=== PATIENT | male | born 1940 | race Caucasian/White ===

== ENCOUNTER 2017-07-06 08:04 | Emergency (ER) | payer MEDICARE ==
[~2017-07-06] VITALS: Ht 182.9 cm; Wt 98.0 kg
[~2017-07-06 08:04] MED LIST: AMIT25TA20 PO; ASPI81TA82 PO; ATOR20TA PO; GLIP5 PO; HYDR12.56 PO; LORT5TAB PO; NITR0.4S SL
[2017-07-06 08:08] VITALS: BP 144/67; PULSE 69; RESP 16; TEMP 97.5; O2SAT 94
[2017-07-06] MEDS ORDERED: SODIUM CHLORIDE 0.9% FLUSH 10 ML FLUSH IVF PRN (08:30)
[2017-07-06] MEDS ORDERED: TRAM50TA PO (08:34)
[2017-07-06] MEDS ORDERED: GLIP10TA6 PO (08:34)
[2017-07-06] MEDS ORDERED: METF500T PO (08:34)
[2017-07-06] MEDS ORDERED: HYDR25TA5 PO (08:34)
[2017-07-06] MEDS ORDERED: ATOR40TA16 PO (08:34)
[2017-07-06] MEDS ORDERED: LUPR11.22 IM (08:34)
[2017-07-06] MEDS ORDERED: ASPI81CH6 CHEW (08:34)
[2017-07-06 08:39] VITALS: BP 103/59; PULSE 71; RESP 18; O2SAT 95
[2017-07-06 08:48] LABS: AUTOMATED NEUTROPHIL # 6.1 TH/MM3 (1.8-7.7); BASOPHIL # 0.1 TH/MM3 (0-0.2); BASOPHIL % 0.6 % (0.0-2.0); EOSINOPHIL # 0.2 TH/MM3 (0-0.4); EOSINOPHIL % 2.7 % (0.0-4.0); HEMATOCRIT 43.8 % (39.0-51.0); HEMOGLOBIN 13.9 GM/DL (13.0-17.0); LYMPH % 16.9 % (9.0-44.0); LYMPHOCYTE # 1.4 TH/MM3 (1.0-4.8); MEAN CELL VOLUME 88.8 FL (80.0-100.0); MEAN CORPUSCULAR HEMOGLOBIN 28.2 PG (27.0-34.0); MEAN CORPUSCULAR HGB CONC 31.8 % (32.0-36.0); MEAN PLATELET VOLUME 7.8 FL (7.0-11.0); MONO % 6.9 % (0.0-8.0); MONOCYTE # 0.6 TH/MM3 (0-0.9); NEUT % 72.9 % (16.0-70.0); PLATELET COUNT 309 TH/MM3 (150-450); RED BLOOD COUNT 4.93 MIL/MM3 (4.50-5.90); RED CELL DISTRIBUTION WIDTH 13.3 % (11.6-17.2); WHITE BLOOD COUNT 8.4 TH/MM3 (4.0-11.0)
--- NOTE | 2017-07-06 08:52 | PD ---
HPI Chief Complaint: GI Complaint Time Seen by Provider: 08:19 Travel History International Travel<30 days: No Contact w/Intl Traveler<30days: No Traveled to known affect area: No History of Present Illness HPI 76-year-old male states a couple months ago he had bright red bleeding per rectum but it went away and he did not see a physician for it. He states again over the past couple of days he's had bright red bleeding per rectum. He states he's also had a couple episodes of nonbloody emesis. He denies any abdominal pain, fever or other concurrent complaints. He denies taking any over -the-counter anti-inflammatories but states that he has been on tramadol for her new pain medication. Quality is bright red. He states he's wearing a depends because he is having bleeding even when he is not going to the bathroom. He feels worse when he moves around. He denies other modifying factors. Quality is bright red. Severity is multiple episodes. PFSH Past Medical History Hx Anticoagulant Therapy: Yes (ASA 81MG DAILY) Arthritis: Yes Blood Disorders: No Cancer: No Cardiovascular Problems: No High Cholesterol: Yes Chemotherapy: No Cerebrovascular Accident: Yes (TIA 2002) Diabetes: Yes Patient Takes Glucophage: Yes Endocrine: Yes Genitourinary: Yes Hypertension: Yes Immune Disorder: No Musculoskeletal: Yes Neurologic: No Psychiatric: No Reproductive: No Respiratory: No Migraines: No Radiation Therapy: No Seizures: No Sickle Cell Disease: No Past Surgical History Abdominal Aneurysm Repair: Yes Abdominal Surgery: Yes (HERNIA REPAIR) Cardiac Surgery: No Ear Surgery: No Endocrine Surgery: No Eye Surgery: No Genitourinary Surgery: Yes (PROSTATE REMOVAL) Gynecologic Surgery: No Oral Surgery: No Thoracic Surgery: No Other Surgery: Yes (PROSTATE CA REMOVED/L HERNIA REPAIR) Social History Alcohol Use: No Tobacco Use: No Substance Use: No Allergies-Medications (Allergen,Severity, Reaction): Coded Allergies: No Known Allergies (Verified , 07/20/15) Reported Meds & Prescriptions Reported Meds & Active Scripts Active Reported Hydrochlorothiazide 25 Mg Tab 25 Mg PO BID Atorvastatin (Atorvastatin Calcium) 40 Mg Tab 40 Mg PO HS Tramadol (Tramadol HCl) 50 Mg Tab 50 Mg PO Q4H PRN Glipizide 10 Mg Tab 10 Mg PO BIDAC Take 30 minutes before a meal Lupron Depot Inj Kit (Leuprolide (3 Month) Inj Kit) 11.25 Mg Kit 11.25 Mg IM Q90D Aspirin Low Dose (Aspirin) 81 Mg Chew 81 Mg CHEW DAILY Metformin (Metformin HCl) 500 Mg Tab 500 Mg PO BIDPC Review of Systems Except as stated in HPI: all other systems reviewed are Neg Physical Exam Narrative GENERAL: Well-nourished, well-developed patient. SKIN: Warm and dry. HEAD: Normocephalic and atraumatic. EYES: No injection or drainage. ENT: No nasal drainage noted. NECK: Supple, trachea midline. CARDIOVASCULAR: Regular rate and rhythm RESPIRATORY: Breath sounds equal bilaterally. No accessory muscle use. GASTROINTESTINAL: Abdomen soft, non-tender, nondistended. RECTAL EXAM: Performed with membership advisor and after permission. No large external hemorrhoid or fissure, stool is bloody NEUROLOGICAL: Awake. Motor and sensory grossly within normal limits. Normal speech. Data Data Last Documented VS Vital Signs Date Time Temp Pulse Resp B/P (MAP) Pulse Ox O2 Delivery O2 Flow Rate FiO2 07/06/17 08:39 71 18 103/59 (74) 95 Room Air 07/06/17 08:08 97.5 Orders Orders Complete Blood Count With Diff (07/06/17 08:19) Comprehensive Metabolic Panel (07/06/17 08:19) Prothrombin Time / Inr (Pt) (07/06/17 08:19) Act Partial Throm Time (Ptt) (07/06/17 08:19) Type And Screen (07/06/17 08:19) Ecg Monitoring (07/06/17 08:19) Iv Access Insert/Monitor (07/06/17 08:19) Oximetry (07/06/17 08:19) Sodium Chloride 0.9% Flush (Ns Flush) (07/06/17 08:30) Ondansetron Inj (Zofran Inj) (07/06/17 09:00) Sodium Chlorid 0.9% 500 Ml Inj (Ns 500 M (07/06/17 09:00) Pantoprazole Inj (Protonix Inj) (07/06/17 09:00) Ed Discharge Order (07/06/17 11:13) Labs Laboratory Tests Test 07/06/17 08:38 White Blood Count 8.4 TH/MM3 Red Blood Count 4.93 MIL/MM3 Hemoglobin 13.9 GM/DL Hematocrit 43.8 % Mean Corpuscular Volume 88.8 FL Mean Corpuscular Hemoglobin 28.2 PG Mean Corpuscular Hemoglobin Concent 31.8 % Red Cell Distribution Width 13.3 % Platelet Count 309 TH/MM3 Mean Platelet Volume 7.8 FL Neutrophils (%) (Auto) 72.9 % Lymphocytes (%) (Auto) 16.9 % Monocytes (%) (Auto) 6.9 % Eosinophils (%) (Auto) 2.7 % Basophils (%) (Auto) 0.6 % Neutrophils # (Auto) 6.1 TH/MM3 Lymphocytes # (Auto) 1.4 TH/MM3 Monocytes # (Auto) 0.6 TH/MM3 Eosinophils # (Auto) 0.2 TH/MM3 Basophils # (Auto) 0.1 TH/MM3 CBC Comment DIFF FINAL Differential Comment Prothrombin Time 10.2 SEC Prothromb Time International Ratio 1.0 RATIO Activated Partial Thromboplast Time 26.7 SEC Blood Urea Nitrogen 19 MG/DL Creatinine 1.50 MG/DL Random Glucose 176 MG/DL Total Protein 7.2 GM/DL Albumin 3.5 GM/DL Calcium Level 9.0 MG/DL Alkaline Phosphatase 160 U/L Aspartate Amino Transf (AST/SGOT) 16 U/L Alanine Aminotransferase (ALT/SGPT) 14 U/L Total Bilirubin 0.8 MG/DL Sodium Level 137 MEQ/L Potassium Level 3.9 MEQ/L Chloride Level 100 MEQ/L Carbon Dioxide Level 29.8 MEQ/L Anion Gap 7 MEQ/L Estimat Glomerular Filtration Rate 46 ML/MIN MDM Medical Decision Making Medical Screen Exam Complete: Yes Emergency Medical Condition: Yes Medical Record Reviewed: Yes (past history confirmed) Interpretation(s) CBC & BMP Diagram 07/06/17 08:38 Total Protein 7.2, Albumin 3.5, Calcium Level 9.0, Alkaline Phosphatase 160 H, Aspartate Amino Transf (AST/SGOT) 16, Alanine Aminotransferase (ALT/SGPT) 14, Total Bilirubin 0.8 Differential Diagnosis Diverticulosis, gastroenteritis, hemorrhoid, anemia, radiation colitis Narrative Course Will check blood work and reevaluate. Dose with IV fluids and Zofran and Protonix Reviewed labs, will discuss with GI Patient's is now here and lengthy discussion with patient and he does not want to stay in the hospital for any more testing. We'll discuss with his primary care physician CASIE: The risks of leaving against medical advice without further evaluation treatment were discussed with the patient. These risks include cardiac dysfunction, cardiac dysrhythmia, possible heart attack, possible stroke or . The patient indicated understanding of these risks and appeared to have the capacity to make this decision. [facility] Point of Care Internal Pos. & Neg. Controls: Passed Fecal Specimen Occult Blood: Positive Physician Communication Physician Communication dr zamarripa states to order bleeding scan and ct abdomen and observe in the hospital dr gagnon states since patient wants to leave ama will see in office next week Diagnosis Primary Impression: Rectal bleeding Additional Impressions: Vomiting Qualified Codes: R11.10 - Vomiting, unspecified Renal insufficiency Patient Instructions: General Instructions Additional Instructions: call dr gagnon for close follow up Disposition: 07 AGAINST MEDICAL ADVICE Condition: Stable Zhane Avila MD Jul 06, 2017 08:52
[2017-07-06 08:55] LABS: CHLORIDE 100 MEQ/L (98-107); SODIUM (NA) 137 MEQ/L (136-145)
[2017-07-06 08:59] LABS: ALBUMIN 3.5 GM/DL (3.4-5.0); BICARBONATE 29.8 MEQ/L (21.0-32.0); BLOOD UREA NITROGEN 19 MG/DL (7-18); GLUCOSE,RANDOM 176 MG/DL (74-106); PROTHROMBIN TIME - PATIENT 10.2 SEC (9.8-11.6)
[2017-07-06] MEDS ORDERED: PANTOPRAZOLE SODIUM 40 MG VIAL IV PUSH ONE (09:00)
[2017-07-06] MEDS ORDERED: ONDANSETRON HCL 4 MG/2 ML VIAL IV PUSH ONE (09:00)
[2017-07-06] MEDS ORDERED: SODIUM CHLORID 0.9% 500 ML INJ 500 ML IV ONE (09:00)
[2017-07-06 09:02] LABS: ALT (GPT) 14 U/L (12-78); AST (GOT) 16 U/L (15-37); GLOMERULAR FILTRATION RATE 46 ML/MIN (>89)
[2017-07-06 09:03] LABS: TOTAL BILIRUBIN ADULT 0.8 MG/DL (0.2-1.0); TOTAL PROTEIN 7.2 GM/DL (6.4-8.2)
[2017-07-06 09:05] LABS: ALKALINE PHOSPHATASE 160 U/L (45-117)
== END 2017-07-06 11:41 | disposition left against medical advice (07) ==
LOC: PHED 08:04
DX: K62.5 Hemorrhage of anus and rectum (principal); Z53.21 Procedure and treatment not carried out due to patient leaving prior to being seen by health care provider; R11.10 Vomiting, unspecified; N28.9 Disorder of kidney and ureter, unspecified; E11.9 Type 2 diabetes mellitus without complications; I10 Essential (primary) hypertension; Z79.82 Long term (current) use of aspirin
CPT/HCPCS: 80053; 85025; 85610; 85730; 86850; 86900; 86901; 96361; 96374; 96375; 99284; C9113; J2405; J7040

== ENCOUNTER 2018-04-30 02:05 | Inpatient (IN) ==
--- NOTE | 2018-04-30 02:25 | ED ---
HPI General Chief Complaint: Shortness of Breath/Dyspnea Stated Complaint: SOB Time Seen by Provider: 04/30/18 02:28 Source: patient Mode of arrival: ambulatory Limitations: no limitations History of Present Illness 77-year-old male presents to the emergency room marked respiratory distress with severe dyspnea on exertion demonstrating tachypnea and work of breathing and low O2 saturations on room air. Patient denies fever chills or productive cough. Patient had no hemoptysis or yellow-green sputum production. Patient has history of high blood pressure and reportedly was prescribed HCTZ which she has been out of for 5 days with progressive worsening and swelling of the lower extremities. No recent long distance travel protracted bedrest or surgical procedure. Patient denies history of congestive heart failure. Patient was just seen by his primary care and started on a refill of his HCTZ but has not yet taken it. Patient denies any chest pain. No abdominal pain. Symptoms acutely worse this evening. Marked shortness of breath with minimal exertion. MD Complaint: Reports shortness of breath Onset (ago): day(s) Context: Reports occurred during exertion; Denies recent illness, choking/ aspiration, medication noncompliance, allergen exposure, recent travel, smoke/ fume exposure, anxiety, trauma/injury, elevated blood glucose and CO exposure Severity: severe Consistency/Duration: constant and progressively worsening Relieving factors: nothing Exacerbating factors: exertion, movement and talking Known history of: Reports diabetes; Denies COPD, asthma, congestive heart failure, recurrent pneumonia, aspiration pneumonia, HIV, PE, DVT and IVDU Associated symptoms: Reports orthopnea and lower extremity pain; Denies chest pain, pain with inspiration, fever, cough, wheezing, sputum production, polyuria , polydipsia, paresthesias, palpitations, carpopedal spasm, hemoptysis, diaphoresis, nausea/vomiting, syncope, abdominal pain, rash, sense of impending doom, chest congestion, dizziness and lightheadedness Treatment prior to arrival: Reports none Related Data Home oxygen amount: none Home Medications Medication Instructions Recorded Confirmed atorvastatin 20 mg PO DAILY 04/30/18 04/30/18 glipizide 10 mg PO DAILY 04/30/18 04/30/18 hydrochlorothiazide 25 mg PO DAILY 04/30/18 04/30/18 losartan 100 mg PO DAILY 04/30/18 04/30/18 metformin 500 mg PO DAILY 04/30/18 04/30/18 Allergies Allergy/AdvReac Type Severity Reaction Status Date / Time No Known Allergies Allergy Verified 04/30/18 03:15 Review of Systems ROS: all other systems reviewed are negative PMFSH History History Provided By: Medical Record (Hypertension 5 cm abdominal aortic aneurysm status post endovascular graft repair 2016 diabetes hypertension dyslipidemia CAD nonsustained ventricular tachycardia nuc stress 2016 fixed apical defect with hyokinesis ef by echo 55-60 ) Medical History Medical History Diabetes mellitus (Acute) HTN (hypertension) (Acute) Hypercholesteremia (Acute) Surgical History Surgical History History of carotid endarterectomy (Acute) Hx of aortic aneurysm repair (Acute) Hx of prostatectomy (Acute) Social History Social History Substance History: No History of Abuse Second Hand Smoke Exposure: No Smoking Status: Former smoker How Often Do You Have a Drink Containing Alcohol: Never Recent Travel in [facility] within the Last 8 Weeks: No Recent Out of Country Travel within the Last 8 Weeks: No Exam Narrative Exam Narrative: GENERAL: Well-nourished, well-developed patient. In acute respiratory distress, RA O2 sat 71% SKIN: Focused skin assessment warm/dry. HEAD: Normocephalic. EYES: No scleral icterus. No injection or drainage. NECK: Supple, trachea midline. No JVD or lymphadenopathy. CARDIOVASCULAR: Regular rate and rhythm without murmurs, gallops, or rubs. RESPIRATORY: Breath sounds equal bilaterally bibasilar rales with accessory muscle use. GASTROINTESTINAL: Abdomen soft, non-tender, nondistended. MUSCULOSKELETAL: No cyanosis, bilateral hand and pedal edema. BACK: Nontender without obvious deformity. No CVA tenderness. Course Initial Documented Vital Signs Temperature 98.0 F 04/30/18 02:18 Pulse Rate 100 H 04/30/18 02:18 Respiratory Rate 18 04/30/18 02:18 Blood Pressure 192/90 H 04/30/18 02:18 Pulse Oximetry 95 04/30/18 02:18 Last Documented Vital Signs Temperature 98.0 F 04/30/18 02:18 Pulse Rate 100 H 04/30/18 02:18 Respiratory Rate 18 04/30/18 02:18 Blood Pressure 192/90 H 04/30/18 02:18 Pulse Oximetry 96 04/30/18 02:30 Critical Care Time Critical Care Time: Yes Total Critical Care Time: 35 Attestation: Aggregate critical care time was 35 minutes. Time to perform other separately billable procedures was not included in the critical care time. My time did not include minutes spent treating any other patients simultaneously or on activities that did not directly contribute to the patient's treatment. The services I provided to this patient were to treat and/or prevent clinically significant deterioration that could result in: Respiratory arrest, I provided critical care services requiring my management, as noted below: Chart data review, documentation time, medication orders and management, vital sign assessments/reviewing monitor data, ordering and reviewing lab tests, ordering and interpreting/reviewing x-rays and diagnostic studies, care of the patient and discussion of the patient with the admitting physicians. Medical Decision Making MDM Narrative Medical decision making narrative: 77-year-old male presents to the emergency department with marked shortness of breath upon evaluating oxygen on pulse oximetry 71% sat with good waveform patient immediately placed in room started on supplemental oxygen with nonrebreather 15 L/min environmental monitoring specialist and IV access obtained. EKG performed shows sinus tachycardia with Q waves inferiorly no acute ST elevation or injury pattern artifact present at baseline and PAC. Patient placed on BiPAP ABG ordered with pH of 7.39 and PO2 of 40 PO2 96 on 15 L bicarbonate in normal range at 23.6 sats 96%. Patient administer one-time dose of Lasix iv; labs cxr ordered. Chest x-ray shows cephalization patchy infiltrate consistent with failure/edema Total white cell count is 15,500 with mild left shift due to patient's presentation of sinus tachycardia and white count elevation patient does meet SIRS criteria and this point no obvious source of infection patient had no fever no chills no productive cough no yellow-green sputum production. Urine specimen will be collected. Chemistries resulted consistent with renal insufficiency which appears chronic Patient able to be transitioned to nasal cannula oxygen at rest tolerates supplemental oxygen well remains symptomatic with exertion patient will require hospitalization is at risk for respiratory deterioration may require BiPAP support has experienced orthopnea and dyspnea on exertion and PND. BNP mildly elevated at 305; troponin I 0.07, elevated call placed to pcp service dr Bull -- Tiffani WHITTEN will admit to their service ; placed in step down unit. Medical Screen Exam Complete: Yes Emergency Medical Condition: Yes Differential Diagnosis Differential Diagnosis: Dyspnea, CHF, COPD, PE, pneumonia, SIRS, sepsis, anemia , ACS, AL, renal failure Medical Records Medical records reviewed: Yes I reviewed the patient's medical records. Lab Data Result diagrams: 04/30/18 02:25 04/30/18 02:25 Lab Results 04/30/18 04/30/18 04/30/18 Range/Units 02:15 02:25 02:25 CBC w Diff Auto diff final WBC 15.5 H (4.0-11.0) th/mm3 RBC 4.88 (4.50-5.90) mil/mm3 Hgb 14.7 (13.0-17.0) gm/dL Hct 45.3 (39.0-51.0) % MCV 92.8 (80.0-100.0) fL MCH 30.0 (27.0-34.0) pg MCHC 32.4 (32.0-36.0) % RDW 13.9 (11.6-17.2) % Plt Count 303 (150-450) th/mm3 MPV 8.2 (7.0-11.0) fL Neut % (Auto) 79.5 H (16.0-70.0) % Lymph % (Auto) 11.6 (9.0-44.0) % [place] % (Auto) 4.9 (0.0-8.0) % Eos % (Auto) 1.4 (0.0-4.0) % Baso % (Auto) 2.6 H (0.0-2.0) % Neut # (Auto) 12.3 H (1.8-7.7) th/mm3 Lymph # (Auto) 1.8 (1.0-4.8) th/mm3 [place] # (Auto) 0.8 (0.0-0.9) th/mm3 Eos # (Auto) 0.2 (0.0-0.4) th/mm3 Baso # (Auto) 0.4 H (0.0-0.2) th/mm3 WBC Differential . Differential Comment . PT 9.6 L (9.8-11.6) sec INR 0.9 Ratio APTT 25.8 (23.4-31.7) sec Puncture Site Right brachial Patient Temperature 98.6 O2 Saturation 96 (90-100) % ABG pH 7.39 (7.380-7.420) ABG pCO2 40 (38-42) mmHg ABG pO2 97 (61-120) mmHg ABG HCO3 24 (22-26) mmol/L ABG O2 Content 19.2 (12.0-20.0) Vol % ABG Base Excess -0.8 (-2-2) mmol/L ABG Methemoglobin 1.0 (0-2) % Hemoglobin 14.3 (12.0-16.0) G/DL Carboxyhemoglobin 1.8 (0-4) % O2 Delivery Device Nonrebreather Liter Flow 15.00 L/M Critical Value No Sodium (136-145) meq/L Potassium (3.5-5.1) meq/L Chloride (98-107) meq/L Carbon Dioxide (21.0-32.0) meq/L Anion Gap (5-15) meq/L BUN (7-18) mg/dL Creatinine (0.60-1.30) mg/dL Estimated GFR (>89) mL/min Random Glucose (74-106) mg/dL Calcium (8.5-10.1) mg/dL Magnesium (1.5-2.5) mg/dL Total Bilirubin (0.2-1.0) mg/dL AST (15-37) U/L ALT (12-78) U/L Alkaline Phosphatase (45-117) U/L Troponin I (0.02-0.05) ng/mL B-Natriuretic Peptide (0-100) pg/mL Total Protein (6.4-8.2) g/dL Albumin (3.4-5.0) g/dL Urine Color (Yellw/Straw) Urine Clarity (Clear) Urine pH (5.0-8.5) Ur Specific [place] (1.002-1.035) Urine Protein (Neg-Trace) mg/dL Urine Glucose (UA) (Negative) mg/dL Urine Ketones (Negative) mg/dL Urine Occult Blood (Negative) Urine Nitrate (Negative) Urine Bilirubin (Negative) Urine Urobilinogen (Less than 2) mg/dL Ur Leukocyte Esterase (Negative) Urine RBC (0-3) /hpf Urine WBC (0-5) /hpf Ur Squamous Epith Cells (0-5) /hpf Micro UA Comment Ur Microscopic Review Urine Culture Comments 04/30/18 04/30/18 04/30/18 Range/Units 02:25 02:25 02:55 CBC w Diff WBC (4.0-11.0) th/mm3 RBC (4.50-5.90) mil/mm3 Hgb (13.0-17.0) gm/dL Hct (39.0-51.0) % MCV (80.0-100.0) fL MCH (27.0-34.0) pg MCHC (32.0-36.0) % RDW (11.6-17.2) % Plt Count (150-450) th/mm3 MPV (7.0-11.0) fL Neut % (Auto) (16.0-70.0) % Lymph % (Auto) (9.0-44.0) % [place] % (Auto) (0.0-8.0) % Eos % (Auto) (0.0-4.0) % Baso % (Auto) (0.0-2.0) % Neut # (Auto) (1.8-7.7) th/mm3 Lymph # (Auto) (1.0-4.8) th/mm3 [place] # (Auto) (0.0-0.9) th/mm3 Eos # (Auto) (0.0-0.4) th/mm3 Baso # (Auto) (0.0-0.2) th/mm3 WBC Differential Differential Comment PT (9.8-11.6) sec INR Ratio APTT (23.4-31.7) sec Puncture Site Patient Temperature O2 Saturation (90-100) % ABG pH (7.380-7.420) ABG pCO2 (38-42) mmHg ABG pO2 (61-120) mmHg ABG HCO3 (22-26) mmol/L ABG O2 Content (12.0-20.0) Vol % ABG Base Excess (-2-2) mmol/L ABG Methemoglobin (0-2) % Hemoglobin (12.0-16.0) G/DL Carboxyhemoglobin (0-4) % O2 Delivery Device Liter Flow L/M Critical Value Sodium 140 (136-145) meq/L Potassium 4.6 (3.5-5.1) meq/L Chloride 107 (98-107) meq/L Carbon Dioxide 21.8 (21.0-32.0) meq/L Anion Gap 11 (5-15) meq/L BUN 26 H (7-18) mg/dL Creatinine 1.40 H (0.60-1.30) mg/dL Estimated GFR 49 L (>89) mL/min Random Glucose 129 H (74-106) mg/dL Calcium 9.1 (8.5-10.1) mg/dL Magnesium 2.4 (1.5-2.5) mg/dL Total Bilirubin 1.0 (0.2-1.0) mg/dL AST 34 (15-37) U/L ALT 36 (12-78) U/L Alkaline Phosphatase 223 H (45-117) U/L Troponin I 0.07 H (0.02-0.05) ng/mL B-Natriuretic Peptide 305 H (0-100) pg/mL Total Protein 7.8 (6.4-8.2) g/dL Albumin 3.9 (3.4-5.0) g/dL Urine Color Yellow (Yellw/Straw) Urine Clarity Clear (Clear) Urine pH 5.5 (5.0-8.5) Ur Specific [place] 1.025 (1.002-1.035) Urine Protein 100 H (Neg-Trace) mg/dL Urine Glucose (UA) Negative (Negative) mg/dL Urine Ketones Negative (Negative) mg/dL Urine Occult Blood Trace (Negative) Urine Nitrate Negative (Negative) Urine Bilirubin Negative (Negative) Urine Urobilinogen 0.2 (Less than 2) mg/dL Ur Leukocyte Esterase Negative (Negative) Urine RBC 0-3 (0-3) /hpf Urine WBC 0-5 (0-5) /hpf Ur Squamous Epith Cells 0-5 (0-5) /hpf Micro UA Comment Culture not ind Ur Microscopic Review Microscopic reviewed Urine Culture Comments Culture not ind Imaging Data Radiologist's impression: Chest X-Ray 04/30/18 02:21 CONCLUSION: New bilateral alveolar opacities greatest at the right lung base. The findings of concern for pulmonary edema. ECG Data EKG Prior to Arrival: No Attestation: I personally reviewed and interpreted this ECG as follows: (EKG: Sinus tachycardia first-degree AV block artifact present at baseline Q wave inferiorly age-indeterminate no acute ST elevation occasional PAC) Prior ECG tracings: not available for review Discharge Plan Discharge Disposition Patient Disposition: 30 Still Patient Discharge Condition Condition: Stable Discharge Details Diagnosis: Pulmonary edema with congestive heart failure, Elevated troponin I level, SIRS (systemic inflammatory response syndrome) Physicians Team ED Provider: Nasima Haskins Primary Care Provider: Avni Bull Attending Provider: Avni Bull Status ED Status: Admitted Patient
[2018-04-30 02:36] LABS: Baso # (Auto) 0.4 th/mm3 (0.0-0.2); Baso % (Auto) 2.6 % (0.0-2.0); Eos # (Auto) 0.2 th/mm3 (0.0-0.4); Eos % (Auto) 1.4 % (0.0-4.0); Hematocrit 45.3 % (39.0-51.0); Hemoglobin 14.7 gm/dL (13.0-17.0); Lymph # (Auto) 1.8 th/mm3 (1.0-4.8); Lymph % (Auto) 11.6 % (9.0-44.0); Mean Corpuscular HGB Conc 32.4 % (32.0-36.0); Mean Corpuscular Volume 92.8 fL (80.0-100.0); Mean Platelet Volume 8.2 fL (7.0-11.0); Mono # (Auto) 0.8 th/mm3 (0.0-0.9); Mono % (Auto) 4.9 % (0.0-8.0); Neut # (Auto) 12.3 th/mm3 (1.8-7.7); Neut % (Auto) 79.5 % (16.0-70.0); Platelet Count 303 th/mm3 (150-450); Red Blood Count 4.88 mil/mm3 (4.50-5.90); Red Cell Distribution Width 13.9 % (11.6-17.2); White Blood Count 15.5 th/mm3 (4.0-11.0)
[2018-04-30 02:42] LABS: ABG Base Excess -0.8 mmol/L (-2-2); ABG PCO2 40 mmHg (38-42); ABG PO2 97 mmHg (61-120)
[2018-04-30 02:45] LABS: Chloride 107 meq/L (98-107); Potassium 4.6 meq/L (3.5-5.1); Sodium 140 meq/L (136-145)
[2018-04-30 02:49] LABS: Activated Partial Thrombo Time 25.8 sec (23.4-31.7); Albumin 3.9 g/dL (3.4-5.0); Anion Gap 11 meq/L (5-15); Blood Urea Nitrogen 26 mg/dL (7-18); Calcium 9.1 mg/dL (8.5-10.1); Carbon Dioxide 21.8 meq/L (21.0-32.0); Glucose,Random 129 mg/dL (74-106); INR 0.9 Ratio; Magnesium 2.4 mg/dL (1.5-2.5); Prothrombin Time 9.6 sec (9.8-11.6)
--- NOTE | 2018-04-30 02:50 | XR ---
EXAM DATE: 04/30/2018 2:39 AM EST AGE/SEX: 77 years / Male INDICATIONS: Shortness of breath. CLINICAL DATA: This is the patient's initial encounter. Patient reports that signs and symptoms have been present for 1 day and indicates a pain score of 0/10. MEDICAL/SURGICAL HISTORY: Hypertension. Diabetes mellitus type II. Stroke. None. COMPARISON: [facility], CHEST SINGLE AP, 07/20/2015. . FINDINGS: A single AP erect view of the chest was obtained and demonstrates new hazy alveolar perihilar and bib asilar opacities. There is no distinct effusion. The heart size appears mildly prominent. The bony th orax is intact. Atherosclerotic changes are again noted in the aorta. There are multiple overlying el ectrocardiogram leads. CONCLUSION: New bilateral alveolar opacities greatest at the right lung base. The findings of concern for pulmona ry edema. Electronically signed by: Sawyer Hardin MD 04/30/2018 2:49 AM EST
[2018-04-30 02:52] LABS: Alanine Aminotransferase 36 U/L (12-78)
[2018-04-30 02:53] LABS: Aspartate Aminotransferase 34 U/L (15-37); Glomerular Filtration Rate 49 mL/min (>89)
[2018-04-30 02:54] LABS: Total Protein 7.8 g/dL (6.4-8.2)
[2018-04-30 02:55] LABS: Alkaline Phosphatase 223 U/L (45-117)
[2018-04-30 02:57] LABS: Troponin I 0.07 ng/mL (0.02-0.05)
[2018-04-30 03:05] LABS: Bilirubin,Urine Negative (Negative); Clarity,Urine Clear (Clear); Color,Urine Yellow (Yellw/Straw); Glucose,Urine (UA) Negative (Negative); Leukocyte Esterase,Urine Negative (Negative); Nitrite,Urine Negative (Negative); PH,Urine 5.5 (5.0-8.5); Specific Gravity,Urine 1.025 (1.002-1.035); Urobilinogen,Urine 0.2 mg/dL (Less than 2)
[2018-04-30 03:15] LABS: RBC,Urine 0-3 /hpf (0-3); Squamous Epithelial Cell,Urine 0-5 /hpf (0-5); WBC,Urine 0-5 /hpf (0-5)
[2018-04-30] MEDS ORDERED: Acetaminophen 325 MG Tablet PO PRN (03:26)
[2018-04-30] MEDS ORDERED: Bisacodyl 10 MG Supp RECTAL PRN (03:26)
[2018-04-30] MEDS: glipiZIDE 10 MG Tablet PO SCH (08:26)
[2018-04-30] MEDS: Senna/Docusate Sodium 8.6/50 MG Tablet PO SCH ×2 (08:26→20:31)
[2018-04-30] MEDS: hydroCHLOROthiazide 25 MG Tablet PO SCH (08:27)
--- NOTE | 2018-04-30 12:01 | P.HPFP ---
History of Present Illness Primary Care Physician: Avni Bull DO History of Present Illness: 77-year-old male presents to the emergency room marked respiratory distress with severe dyspnea on exertion demonstrating tachypnea and work of breathing and low O2 saturations on room air. He states that he has been out of his HCTZ for > 5 days. he was seen in office yesterday, medication refilled, however he did not pick it up. He is more dyspneic on exertion, he has not seen cardiology in several years. He denies Chest pain. - Diagnosis (1) Pulmonary edema with congestive heart failure (2) Elevated troponin I level (3) HTN (hypertension) (4) Diabetes Inpatient Certification: I certify that the inpatient services were ordered in accordance with Medicare regulations governing the order. This includes certification that hospital inpatient services are reasonable and necessary and in the case of services not specified as inpatient-only under 42 CFR 419.22(n), that they are appropriately provided as inpatient services in accordance to with the 2-midnight benchmark under 43 CFR 412.3(e) Estimated Total Length of Stay (Days): 3 Plans for Post Hospital Care: Not yet determined [facility] - History History Provided By: Patient - Medical History Medical History: Medical History (Last Updated 04/30/18 @ 02:32 by Arminda Martínez RN) Diabetes mellitus HTN (hypertension) Hypercholesteremia - Surgical History Surgical History: Surgical History (Last Updated 04/30/18 @ 02:34 by Arminda Martínez RN) History of carotid endarterectomy Hx of aortic aneurysm repair Hx of prostatectomy - Tobacco History Second Hand Smoke Exposure: No Tobacco Use In Past 30 Days: No Smoking Status: Former smoker - Alcohol History How Often Do You Have a Drink Containing Alcohol: Monthly or less - Substance Use History Substance History: No History of Abuse - Travel History Recent Travel in the [place] Within the Last 8 Weeks: No Recent Travel Out of the Country Within the Last 8 Weeks: No - Immunization History Tetanus Immunization: Unsure Hx Influenza Vaccine This Season: Yes Medications and Allergies Active Medications: Active Medications Acetaminophen (Tylenol) 650 mg PO Q4H PRN PRN Reason: Temp > 100.4 Al Hydroxide/Mg Hydroxide (Milk Of Magnalejandrina Liq) 30 ml PO Q12H PRN PRN Reason: Mild Constipation Atorvastatin Calcium (Lipitor) 20 mg PO DAILY [facility] Last Admin: 04/30/18 08:25 Dose: 20 mg Bisacodyl (Dulcolax Supp) 10 mg RECTAL DAILY PRN PRN Reason: SEVERE CONSITIPATION Glipizide (Glucotrol) 10 mg PO DAILY [facility] Last Admin: 04/30/18 08:26 Dose: 10 mg Hydrochlorothiazide (Hydrodiuril) 25 mg PO DAILY [facility] Last Admin: 04/30/18 08:27 Dose: 25 mg Lactulose (Lactulose Liq) 30 ml PO DAILY PRN PRN Reason: SEVERE CONSITIPATION Losartan Potassium (Cozaar) 100 mg PO DAILY [facility] Last Admin: 04/30/18 08:25 Dose: 100 mg Ondansetron HCl (Zofran Inj) 4 mg IV.PUSH Q6H PRN PRN Reason: NAUSEA OR VOMITING Senna/Docusate Sodium (Melinda-Colace) 1 tab PO BID [facility] Last Admin: 04/30/18 08:26 Dose: 1 tab Sennosides (Senokot) 17.2 mg PO Q12H PRN PRN Reason: Moderate Constipation Allergies Allergy/AdvReac Type Severity Reaction Status Date / Time No Known Allergies Allergy Verified 04/30/18 03:15 Home Medications Medication Instructions Recorded Confirmed Type atorvastatin 20 mg PO DAILY 04/30/18 04/30/18 History glipizide 10 mg PO DAILY 04/30/18 04/30/18 History hydrochlorothiazide 25 mg PO DAILY 04/30/18 04/30/18 History losartan 100 mg PO DAILY 04/30/18 04/30/18 History metformin 500 mg PO DAILY 04/30/18 04/30/18 History Exam Vital signs: Vital Signs 04/30/18 02:18 04/30/18 02:30 04/30/18 03:23 Temperature 98.0 F Pulse Rate 100 H 99 H Respiratory Rate 18 16 Blood Pressure 192/90 H 163/73 H Pulse Oximetry 95 96 96 04/30/18 03:48 04/30/18 04:14 04/30/18 04:18 Temperature 98.7 F Pulse Rate 102 H 98 H Respiratory Rate 16 19 Blood Pressure 152/74 H 163/76 H Pulse Oximetry 96 96 96 04/30/18 04:35 04/30/18 07:30 Temperature Pulse Rate 87 Respiratory Rate Blood Pressure Pulse Oximetry 96 99 Intake & Output 04/29/18 04/30/18 04/30/18 18:59 06:59 18:59 Output Total 800 / 800 Balance -800 / -800 Weight 99.7 kg Output: Urine 800 / 800 Other: Date of Last Bowel Movement 04/26/18 Weight On Admission 99.7 kg - Constitutional no acute distress - Routine HEENT Exam Eye: Present: PERRL ENT: Present: mucous membranes moist - Routine Neck Exam Present: supple - Routine Respiratory Exam Present: diminished air movement - Routine Cardiovascular Exam Present: S1, S2 - Routine Abdominal Exam Present: soft, normoactive bowel sounds - Routine Extremities Exam Present: edema - Routine Skin Exam Present: dry, warm - Routine Neurological Exam Present: alert, oriented X3 Results - Labs Result diagrams: 04/30/18 02:25 04/30/18 02:25 Abnormal lab results 04/30/18 04/30/18 04/30/18 Range/Units 02:25 02:25 02:25 WBC 15.5 H (4.0-11.0) th/mm3 Neut % (Auto) 79.5 H (16.0-70.0) % Baso % (Auto) 2.6 H (0.0-2.0) % Neut # (Auto) 12.3 H (1.8-7.7) th/mm3 Baso # (Auto) 0.4 H (0.0-0.2) th/mm3 PT 9.6 L (9.8-11.6) sec BUN 26 H (7-18) mg/dL Creatinine 1.40 H (0.60-1.30) mg/dL Estimated GFR 49 L (>89) mL/min Random Glucose 129 H (74-106) mg/dL Alkaline Phosphatase 223 H (45-117) U/L Troponin I 0.07 H (0.02-0.05) ng/mL B-Natriuretic Peptide (0-100) pg/mL Urine Protein (Neg-Trace) mg/dL 04/30/18 04/30/18 04/30/18 Range/Units 02:25 02:55 04:20 WBC (4.0-11.0) th/mm3 Neut % (Auto) (16.0-70.0) % Baso % (Auto) (0.0-2.0) % Neut # (Auto) (1.8-7.7) th/mm3 Baso # (Auto) (0.0-0.2) th/mm3 PT (9.8-11.6) sec BUN (7-18) mg/dL Creatinine (0.60-1.30) mg/dL Estimated GFR (>89) mL/min Random Glucose (74-106) mg/dL Alkaline Phosphatase (45-117) U/L Troponin I 0.08 H (0.02-0.05) ng/mL B-Natriuretic Peptide 305 H (0-100) pg/mL Urine Protein 100 H (Neg-Trace) mg/dL Short CBC 04/30/18 Range/Units 02:25 WBC 15.5 H (4.0-11.0) th/mm3 Hgb 14.7 (13.0-17.0) gm/dL Hct 45.3 (39.0-51.0) % Plt Count 303 (150-450) th/mm3 BMP 04/30/18 02:25 Sodium 140 Potassium 4.6 Chloride 107 Carbon Dioxide 21.8 BUN 26 H Creatinine 1.40 H Calcium 9.1 Cardiac Enzymes 04/30/18 04/30/18 Range/Units 02:25 04:20 Troponin I 0.07 H 0.08 H (0.02-0.05) ng/mL Liver Function 04/30/18 Range/Units 02:25 Total Bilirubin 1.0 (0.2-1.0) mg/dL AST 34 (15-37) U/L ALT 36 (12-78) U/L Alkaline Phosphatase 223 H (45-117) U/L Albumin 3.9 (3.4-5.0) g/dL Urine 04/30/18 Range/Units 02:55 Urine Color Yellow (Yellw/Straw) Urine Clarity Clear (Clear) Urine pH 5.5 (5.0-8.5) Ur Specific [place] 1.025 (1.002-1.035) Urine Protein 100 H (Neg-Trace) mg/dL Urine Glucose (UA) Negative (Negative) mg/dL - Imaging Impressions Chest X-Ray 04/30/18 02:21 CONCLUSION: New bilateral alveolar opacities greatest at the right lung base. The findings of concern for pulmonary edema. Caprini VTE Risk Assessment Caprini VTE Risk Assessment: Moderate/High Risk (score >= 2) (heprin sq) Audie Risk Assessment Model: Point Value = 1 Point Value = 2 Point Value = 3 Point Value = 5 Age 41-60 Minor surgery BMI > 25 kg/m2 Swollen legs Varicose veins or History of unexplained or recurrent spontaneous Oral contraceptives or hormone replacement Sepsis (< 1 month) Serious lung disease, including pneumonia (< 1 month) Abnormal pulmonary function Acute myocardial infarction Congestive heart failure (< 1 month) History of inflammatory bowel disease Medical patient at bed rest Age 61-74 Arthroscopic surgery Major open surgery (> 45 min) Laparoscopic surgery (> 45 min) Malignancy Confined to bed (> 72 hours) Immobilizing plaster cast Central venous access Age >= 75 History of VTE Family history of VTE Factor V Leiden Prothrombin [id number] Lupus anticoagulant Anticardiolipin antibodies Elevated serum homocysteine Heparin-induced thrombocytopenia Other congenital or acquired thrombophilia Stroke (< 1 month) Elective arthroplasty Hip, pelvis, or leg fracture Acute spinal cord injury (< 1 month) Prophylaxis Regimen: Total Risk Factor Score Risk Level Prophylaxis Regimen 0-1 Low Early ambulation 2 Moderate Order ONE of the following: *Sequential Compression Device (SCD) *Heparin 5000 units SQ BID 3-4 Higher Order ONE of the following medications: *Heparin 5000 units SQ TID *Enoxaparin/Lovenox 40 mg SQ daily (WT < 150 kg, CrCl > 30 mL/min) *Enoxaparin/Lovenox 30 mg SQ daily (WT < 150 kg, CrCl > 10-29 mL/min) *Enoxaparin/Lovenox 30 mg SQ BID (WT < 150 kg, CrCl > 30 mL/min) AND/OR *Sequential Compression Device (SCD) 5 or more Highest Order ONE of the following medications: *Heparin 5000 units SQ TID (Preferred with Epidurals) *Enoxaparin/Lovenox 40 mg SQ daily (WT < 150 kg, CrCl > 30 mL/min) *Enoxaparin/Lovenox 30 mg SQ daily (WT < 150 kg, CrCl > 10-29 mL/min) *Enoxaparin/Lovenox 30 mg SQ BID (WT < 150 kg, CrCl > 30 mL/min) AND *Sequential Compression Device (SCD) Assessment and Plan - Assessment (1) Pulmonary edema with congestive heart failure Status: Acute Plan: Treated with Iv lasix in ER, Oxygen supplement. Breathing better, Cardiology consult pending (2) Elevated troponin I level Code(s): R74.8 - Abnormal levels of other serum enzymes Status: Acute Plan: Cardiology consult. (3) HTN (hypertension) Code(s): I10 - Essential (primary) hypertension Status: Acute Plan: Cont home medication, titrate as needed (4) Diabetes Code(s): E11.9 - Type 2 diabetes mellitus without complications Status: Acute Plan: Cont home medication, Metformin held R/t ERIC Accu checks ac/hs, sc coverage. H&P: Quality - VTE Deep Vein Thrombosis/Pulmonary Embolism Present on Admission: No
[2018-04-30] MEDS: Heparin - SQ 10,000 UNITS/ML Vial SQ SCH ×2 (12:51→20:31)
--- NOTE | 2018-04-30 14:24 | ECG ---
Date Performed: 04/30/2018 Time Performed: 02:17:50 PTAGE: 77 years EKG: SINUS TACHYCARDIA WITH FIRST DEGREE AV BLOCK WITH OCCASIONAL VENTRICULAR PREMATURE COMPLEXE S WITH OCCASIONAL SUPRAVENTRICULAR PREMATURE COMPLEXES Significant baseline artifact Compared to prev ious tracing the patient is now tachycardic ABNORMAL ECG PREVIOUS TRACING : 07/20/2015 15.35 DOCTOR: Jael Roman Interpretating Date/Time 04/30/2018 14:22:45
--- NOTE | 2018-04-30 20:16 | MB ---
cc: oRss Garza MD DATE: 04/30/2018 HISTORY OF PRESENT ILLNESS: Mr. Hernandez is a very pleasant 77-year-old white male with a history of hypertension, dyslipidemia, DM and peripheral vascular disease, who ran out of his hydrochlorothiazide for several days and subsequently developed lower extremity edema and shortness of breath. He presented to the emergency room with severe shortness of breath, tachypnea, and hypoxemia. He has been feeling better with diuresis with progressive improvement of his shortness of breath and lower extremity edema. He has not had any chest pain. He denies any previous cardiac history. PAST MEDICAL HISTORY: Positive for hypertension, abdominal aortic aneurysm with endovascular graft repair in 2016, diabetes mellitus, dyslipidemia, and nonsustained ventricular tachycardia. A stress test in 2016 showed fixed apical defect, but no evidence of ischemia. Ejection fraction was 55-60%. There is history of carotid and cardiac ectomy and prostatectomy. MEDICATIONS AT HOME: Include: 1. Hydrochlorothiazide. 2. Losartan. 3. Metformin. 4. Glipizide. 5. Atorvastatin. ALLERGIES: NONE. SOCIAL HISTORY: The patient does not smoke. He did smoke in the past. He does not drink alcohol. FAMILY HISTORY: Negative for heart disease. His father of complications of smoking and his mother in her 90s of natural causes. REVIEW OF SYSTEMS: Otherwise negative. PHYSICAL EXAMINATION: VITAL SIGNS: Blood pressure 138/74, pulse 95 and regular, O2 saturation 92%. HEENT: Negative 2+ upstrokes, no bruits. LUNGS: With bibasilar crackles. HEART: Regular with 1/6 systolic murmur. No gallop. ABDOMEN: Soft. No bruits. EXTREMITIES: With 1+ pitting edema and positive pulses. NEUROLOGIC: Grossly nonfocal. RADIOGRAPHIC DATA: EKG was reviewed and showed sinus tachycardia, PVCs, PVCs, and no acute changes. LABORATORY DATA: Hemoglobin 14.7, potassium 4.6, creatinine 1.4. AST and ALT normal. Troponin 0.07 and 0.08. BNP 305. ASSESSMENT AND PLAN: 1. Acute congestive heart failure. 2. Slight troponin elevation. 3. Hypertension. 4. Diabetes mellitus. 5. Peripheral vascular disease. DISPOSITION: Mr. Hernandez presented with shortness of breath and hypoxemia after he ran out of his hydrochlorothiazide. His condition has now significantly improved with diuresis. His troponin is slightly abnormal, but not trending; this is likely due to mild renal insufficiency. I recommend to continue current medical program including diuresis. I also recommend continuing modification of cardiac risk factors including dyslipidemia and diabetes mellitus. I recommend to monitor his renal function. We will obtain echocardiogram to reevaluate his left ventricular function. He will follow up with his [facility] physician as outpatient after discharge. MD OLIVA Damon/em , 07:23 PM , 07:37 PM ALYCE
[2018-05-01 02:14] LABS: Hematocrit 41.9 % (39.0-51.0); Hemoglobin 13.9 gm/dL (13.0-17.0); Mean Corpuscular HGB Conc 33.1 % (32.0-36.0); Mean Corpuscular Hemoglobin 30.6 pg (27.0-34.0); Mean Corpuscular Volume 92.5 fL (80.0-100.0); Mean Platelet Volume 8.4 fL (7.0-11.0); Platelet Count 265 th/mm3 (150-450); Red Blood Count 4.53 mil/mm3 (4.50-5.90); Red Cell Distribution Width 13.6 % (11.6-17.2); White Blood Count 8.7 th/mm3 (4.0-11.0)
[2018-05-01 02:20] LABS: Potassium 4.2 meq/L (3.5-5.1)
[2018-05-01 02:22] LABS: Calcium 8.7 mg/dL (8.5-10.1)
[2018-05-01 02:23] LABS: Carbon Dioxide 30.4 meq/L (21.0-32.0)
[2018-05-01 05:11] LABS: Potassium 4.4 meq/L (3.5-5.1)
[2018-05-01 05:14] LABS: Calcium 8.8 mg/dL (8.5-10.1); Carbon Dioxide 30.7 meq/L (21.0-32.0)
[2018-05-01] MEDS: Heparin - SQ 10,000 UNITS/ML Vial SQ SCH ×2 (08:50→21:39)
[2018-05-01] MEDS: hydroCHLOROthiazide 25 MG Tablet PO SCH (08:50)
[2018-05-01] MEDS: Senna/Docusate Sodium 8.6/50 MG Tablet PO SCH ×2 (08:50→21:39)
[2018-05-01] MEDS: glipiZIDE 10 MG Tablet PO SCH (08:50)
[2018-05-01] MEDS ORDERED: LORazepam 0.5 MG Tablet PO PRN (15:14)
[2018-05-01] MEDS ORDERED: Furosemide 40 MG Tablet PO ONE (15:15)
--- NOTE | 2018-05-01 16:50 | P.DS ---
Date of admission: 04/30/18 03:17 Primary care physician: Avni Bull DO Brief History from admission: 77-year-old male presents to the emergency room marked respiratory distress with severe dyspnea on exertion demonstrating tachypnea and work of breathing and low O2 saturations on room air. He states that he has been out of his HCTZ for > 5 days. he was seen in office yesterday, medication refilled, however he did not pick it up. He is more dyspneic on exertion, he has not seen cardiology in several years. He denies Chest pain. DS: Diagnosis - Discharge Diagnosis (1) Pulmonary edema with congestive heart failure Status: Acute (2) Elevated troponin I level Status: Acute (3) HTN (hypertension) Status: Acute (4) Diabetes Status: Acute DS: Summary Hospital Course: 77-year-old white male with a history of hypertension, dyslipidemia, DM and peripheral vascular disease, He ran out of his diuretic HCTZ for several days and developed increased sob, more prominent on exertion. and B/L lE edema. He was diuresed, with good results, cardiology consulted He was seen by PT no O2 requirements, sat's maintained on room air. He will be sent home and will follow up with pcp, and then be set up for [facility] cardiology out patient. - Time Spent with Patient Total time spent providing and/or coordinating discharge services: 20 Less than 30 minutes - Quality: AMI Clinical Trial Participant: No - Quality: Stroke Symptom Onset Unknown: No - Quality: VTE Is this test being ordered to rule out VTE?: No Deep Vein Thrombosis/Pulmonary Embolism Present on Admission: No Exam Vital signs: Vital Signs 04/30/18 20:00 04/30/18 20:30 05/01/18 00:00 Temperature 99.1 F 98.9 F Pulse Rate 66 72 Respiratory Rate 19 17 Blood Pressure 130/63 135/72 Pulse Oximetry 94 L 95 93 L 05/01/18 04:00 05/01/18 07:23 05/01/18 08:00 Temperature 98.9 F 98.9 F Pulse Rate 70 80 Respiratory Rate 18 15 Blood Pressure 136/74 135/73 Pulse Oximetry 93 L 94 L 90 L 05/01/18 09:00 05/01/18 12:00 Temperature 98.8 F Pulse Rate 90 79 Respiratory Rate 20 Blood Pressure 117/61 Pulse Oximetry 79 L Intake & Output 04/30/18 05/01/18 05/01/18 18:59 06:59 18:59 Intake Total 720 / 720 Output Total 450 / 450 0 / 0 450 / 450 Balance 270 / 270 0 / 0 -450 / -450 Weight 97.5 kg Intake: Oral 720 / 720 Output: Urine 450 / 450 0 / 0 450 / 450 Other: # Urine Diapers 2 Date of Last Bowel Movement 04/30/18 04/30/18 04/30/18 # Bowel Movements 1 - Constitutional no acute distress - Routine HEENT Exam Eye: Present: PERRL ENT: Present: mucous membranes moist - Routine Neck Exam Present: supple - Routine Respiratory Exam Present: CTA bilaterally - Routine Cardiovascular Exam Present: S1, S2 - Routine Abdominal Exam Present: soft, normoactive bowel sounds - Routine Extremities Exam Present: edema (Trace B/L LE) - Routine Skin Exam Present: dry, warm - Routine Neurological Exam Present: alert, oriented X3 Results Labs on day of discharge: Labs from last 24 hours 05/01/18 05/01/18 05/01/18 12:07 07:42 04:48 WBC RBC Hgb Hct MCV MCH MCHC RDW Plt Count MPV Sodium 139 Potassium 4.4 Chloride 101 Carbon Dioxide 30.7 Anion Gap 7 BUN 27 H Creatinine 1.30 Estimated GFR 54 L POC Glucose 143 H 180 H Random Glucose 145 H Calcium 8.8 05/01/18 05/01/18 04/30/18 01:30 01:30 16:52 WBC 8.7 RBC 4.53 Hgb 13.9 Hct 41.9 MCV 92.5 MCH 30.6 MCHC 33.1 RDW 13.6 Plt Count 265 MPV 8.4 Sodium 138 Potassium 4.2 Chloride 101 Carbon Dioxide 30.4 Anion Gap 7 BUN 29 H Creatinine 1.30 Estimated GFR 54 L POC Glucose 126 H Random Glucose 129 H Calcium 8.7 - Impressions ITS Impressions Chest X-Ray 04/30/18 02:21 CONCLUSION: New bilateral alveolar opacities greatest at the right lung base. The findings of concern for pulmonary edema. Discharge Plan - Discharge Disposition Patient Disposition: Discharge Home - Discharge Condition Condition: Stable - Discharge Order Discharge Orders: Discharge Order (Routine); Ordered 05/01/18 Ordered By: Cary Quick - Discharge Details Anticipated Discharge Date: 05/01/18 Discharge Comment: Dc home once cleared by [facility] - Physicians Team Primary Care Provider: Avni Bull Attending Provider: Avni Bull Other Providers: Ross Garza MD
--- NOTE | 2018-05-01 18:49 | ECHRPT ---
Indication: HEART FAILURE CONCLUSIONS Technically difficult study In limited views, the left ventricular systolic function is normal with an estimated ejection fracti on in the range of 55-60%. Moderate concentric left ventricular hypertrophy. Trace aortic valve regurgitation. BP: / HR: Rhythm: Sinus MEASUREMENTS (Male / Female) Normal Values Technical Quality:Technically difficult study 2D ECHO LV Diastolic Diameter PLAX 4.7 cm 4.2 - 5.9 / 3.9 - 5.3 cm LV Systolic Diameter PLAX 3.6 cm IVS Diastolic Thickness 1.7 cm 0.6 - 1.0 / 0.6 - 0.9 cm LVPW Diastolic Thickness 1.7 cm 0.6 - 1.0 / 0.6 - 0.9 cm LV Relative Wall Thickness 0.7 RV Internal Dim ED PLAX 2.6 cm LVOT Diameter 1.9 cm LA Systolic Diameter LX 4.0 cm 3.0 - 4.0 / 2.7 - 3.8 cm LV Ejection Fraction MOD 4C 64.7 % LV Ejection Fraction 4C AL 67.3 % M-MODE Aortic Root Diameter MM 2.6 cm LA Systolic Diameter MM 4.0 cm LA Ao Ratio MM 1.5 AV Cusp Separation MM 2.0 cm DOPPLER AV Peak Velocity 130.0 cm/s AV Peak Gradient 6.8 mmHg AI Peak Velocity 214.0 cm/s AI Peak Gradient 18.3 mmHg AI Pressure Half Time 790.0 ms LVOT Peak Velocity 99.2 cm/s LVOT Peak Gradient 3.9 mmHg AV Area Cont Eq pk 2.2 cm MV Area PHT 4.4 cm Mitral E Point Velocity 82.4 cm/s Mitral A Point Velocity 81.9 cm/s Mitral E to A Ratio 1.0 LV E' Lateral Velocity 5.4 cm/s Mitral E to LV E' Lateral Ratio 15.4 LV E' Septal Velocity 2.2 cm/s Mitral E to LV E' Septal Ratio 36.8 PV Peak Velocity 78.7 cm/s PV Peak Gradient 2.5 mmHg FINDINGS LEFT VENTRICLE In limited views, the left ventricular systolic function is normal with an estimated ejection fracti on in the range of 55-60%. Moderate concentric left ventricular hypertrophy. There was limited left ventricular wall motion assessment due to poor endocardial visualization. RIGHT VENTRICLE Grossly normal LEFT ATRIUM The left atrial size is [id number] dilated. RIGHT ATRIUM The right atrial size is upper limits of normal. ATRIAL SEPTUM Normal atrial septal thickness AORTA The aortic root and proximal ascending aorta are normal in size on limited imaging. MITRAL VALVE Grossly normal No mitral valve stenosis. No mitral valve regurgitation. AORTIC VALVE Trileaflet aortic valve. Aortic valve sclerosis is present. Trace aortic valve regurgitation. No aortic valve stenosis. TRICUSPID VALVE Structurally normal tricuspid valve. No tricuspid valve stenosis or regurgitation. PULMONARY VALVE The pulmonary valve is not well visualized. VESSELS The inferior vena cava is normal in size. PERICARDIUM No pericardial effusion. Rob Josue DO (Electronically Signed) Final Date:01 May 2018 18:48
[2018-05-02 08:15] VITALS: BP 150/79; RESP 18; TEMP 98.8; O2SAT 98
[2018-05-02] MEDS: glipiZIDE 10 MG Tablet PO SCH (08:53)
[2018-05-02] MEDS: Heparin - SQ 10,000 UNITS/ML Vial SQ SCH (08:53)
[2018-05-02] MEDS: Senna/Docusate Sodium 8.6/50 MG Tablet PO SCH (08:53)
[2018-05-02] MEDS ORDERED: Furosemide 40 MG Tablet PO SCH (09:00)
[2018-05-02 10:40] VITALS: PULSE 93
== END 2018-05-02 11:15 | disposition home or self-care (01) ==
LOC: PHED 02:05 → PHEDA 03:17 → PHICU 04:10
PROVIDERS: ADMIT Family Medicine; ATTEND Family Medicine